=== PATIENT | female | born 1990 | race Caucasian/White ===

== ENCOUNTER 2016-07-08 07:17 | Inpatient (IN) | payer OTHER ==
[~2016-07-08 07:17] MED LIST: CLEOCIN OTHER; DIBUCAINE28.35 GM TP; DULCOLAX10 MG RC; PERCOCET 5-3251 EACH PO; PRENATABS RX T1 EACH; SURFAK240 M2 PO; TRIPNIP TOP; ZOFRAN4 M2 PO
[2016-07-08 08:00] LABS: BASO % 0.1 % (0-2); EOS % 0.6 % (0-7); EOSINOPHIL ABSOLUTE COUNT 0.1 tho/cmm (0.0-0.7); HCT-HEMATOCRIT 34.2 % (34.0-49.0); HGB-HEMOGLOBIN 11.7 gm/dl (12.0-15.5); IMMATURE GRANULOCYTES ABSOLUTE 0.07 tho/cmm (0-0.03); IMMATURE GRANULOCYTES PERCENT 0.7 % (0-0.3); LYMPH % 21.5 % (20-45); LYMPH ABSOLUTE COUNT 2.2 tho/cmm (0.8-4.5); MCH (MEAN CORPUSCULAR HGB) 29.7 pg (28.0-32.0); MCHC MEAN CORPUSCULAR HGB CONC 34.2 % (32.0-36.0); MCV (MEAN CELL VOLUME) 86.8 fl (82.0-96.0); MEAN PLATELET VOLUME 10.2 cmc (9.4-12.4); MONO % 7.4 % (0-12); MONOCYTE ABSOLUTE COUNT 0.8 tho/cmm (0.0-1.2); NEUTROPHIL ABSOLUTE COUNT 7.3 tho/cmm (1.6-8.0); NEUTROPHIL-AUTOMATED 7.3 tho/cmm (1.6-8.0); NEUTROPHILS % 69.7 % (40-80); PLATELET COUNT 241 tho/cmm (150-450); RED BLOOD COUNT 3.94 mil/cmm (4.00-5.20); WHITE BLOOD COUNT 10.4 tho/cmm (4.0-10.0)
[2016-07-08 09:54] LABS: CORD BLOOD PH ARTERIAL 7.3 Units (7.18-7.38)
[2016-07-09 06:22] LABS: BASO % 0.2 % (0-2); EOS % 2.3 % (0-7); EOSINOPHIL ABSOLUTE COUNT 0.2 tho/cmm (0.0-0.7); HCT-HEMATOCRIT 32.9 % (34.0-49.0); IMMATURE GRANULOCYTES ABSOLUTE 0.04 tho/cmm (0-0.03); IMMATURE GRANULOCYTES PERCENT 0.4 % (0-0.3); LYMPH % 33.3 % (20-45); LYMPH ABSOLUTE COUNT 3.5 tho/cmm (0.8-4.5); MCH (MEAN CORPUSCULAR HGB) 29.5 pg (28.0-32.0); MCHC MEAN CORPUSCULAR HGB CONC 33.4 % (32.0-36.0); MCV (MEAN CELL VOLUME) 88.2 fl (82.0-96.0); MEAN PLATELET VOLUME 10.3 cmc (9.4-12.4); MONO % 9.2 % (0-12); NEUTROPHIL ABSOLUTE COUNT 5.7 tho/cmm (1.6-8.0); NEUTROPHIL-AUTOMATED 5.7 tho/cmm (1.6-8.0); NEUTROPHILS % 54.6 % (40-80); PLATELET COUNT 243 tho/cmm (150-450); RED BLOOD COUNT 3.73 mil/cmm (4.00-5.20); RED CELL DISTRIBUTION WIDTH 14.4 % (12.4-16.4); WHITE BLOOD COUNT 10.4 tho/cmm (4.0-10.0)
[2016-07-11] MEDS ORDERED: PERCOCET 5-3251 EACH PO (16:46)
[2016-07-11] MEDS ORDERED: ZOFRAN4 M2 PO (16:47)
[2016-07-11] MEDS ORDERED: SURFAK240 M2 PO (16:49)
[2016-07-11] MEDS ORDERED: DULCOLAX10 MG (16:50)
--- NOTE | 2016-07-14 16:29 | NUR ---
CONSULT 07/08/16 @0945: ASISSTED WITH STS IN OR. BABY LATCHES IN PACU, HAS DIFFICULTY MAINTAINING LATCH, MOM WORKS WELL WITH BABY, DAD HELPFUL SUPPORTING BABY AND BREAST TO MAKE SURE BREAST IS FREE OF BABY'S NOSE.
== END 2016-07-11 18:05 | DRG 766 ==
LOC: LDR 07:17 → OBGD 11:00
PROVIDERS: ADMIT Obstetrics & Gynecology
PROC: 10D00Z1 Extraction of Products of Conception, Low, Open Approach (ICD-10-PCS; principal; 2016-07-08)
DX: O34.211 Maternal care for low transverse scar from previous cesarean delivery (principal); Z37.0 Single live birth; Z3A.39 39 weeks gestation of pregnancy
CPT/HCPCS: J0690; J1170; J2270; J2405; J2590; J2795; J7121